=== PATIENT | female | born 1975 | race Two or more races ===

== ENCOUNTER 2024-03-09 13:36 | Inpatient (IN) | payer MEDICAID, OTHER ==
[~2024-03-09] VITALS: Ht 167.6 cm; Wt 70.1 kg
[2024-03-09 15:44] LABS: Urine Blood 1+ /uL (Negative); Urine Clarity Clear (Clear); Urine Color Colorless (Yellow); Urine Protein, UAD TRACE (Negative); Urine Specific Gravity 1.004 (1.001-1.035); Urine Urobilinogen Normal (Negative)
[2024-03-09 15:44] LABS: Basophils # (auto) 0 10 ^3/uL (0-0.2); Basophils % (auto) 0.3 % (0.0-2.0); Eosinophils # (auto) 0 10 ^3/uL (0-0.8); Eosinophils % (auto) 0.4 % (0.0-7.0); Hematocrit 37.3 % (36.0-46.0); Hemoglobin 12.5 g/dL (12.2-16.2); Lymphocytes # (auto) 1.3 10 ^3/uL (0.4-5.4); Lymphocytes % (auto) 11.5 % (10.0-50.0); Mean Corpuscular Hemoglobin 28.5 pg (28.0-32.0); Mean Corpuscular Hgb Conc. 33.5 g/dL (32.0-36.0); Mean Corpuscular Volume 84.8 fL (80.0-100.0); Monocytes # (auto) 1.2 10 ^3/uL (0-1.3); Neutrophils # (auto) 8.5 10 ^3/uL (1.6-8.6); Neutrophils % (auto) 76.8 % (37.0-80.0); Nucleated Red Blood Cells % 0.1 %; Platelet Count (auto) 325 10^3/uL (140-450); Red Cell Distribution Width 13.3 % (11.8-14.3); White Blood Cell 11.1 10^3/uL (4.4-10.8)
[2024-03-09 16:02] LABS: Alanine Aminotransferase 29 U/L (7-40); Albumin 4.6 g/dL (3.2-4.8); Alkaline Phosphatase 86 U/L (46-116); Anion Gap 8 (5-15); Aspartate Aminotransferase 19 U/L (13-40); BUN/Creatinine Ratio 5.5 (10.0-20.0); Blood Urea Nitrogen 6 mg/dL (9-23); Calcium 10.3 mg/dL (8.7-10.4); Carbon Dioxide 24 mmol/L (20-30); Chloride 105 mmol/L (98-107); Glucose 120 mg/dL (74-106); Potassium 3.7 mmol/L (3.5-5.1); Sodium 137 mmol/L (136-145)
[2024-03-09 16:03] LABS: Bilirubin, Total 0.3 mg/dL (0.2-1.0); Total Protein 7.7 g/dL (5.7-8.2)
[2024-03-09] MEDS ORDERED: CEPH250C PO (16:25)
[2024-03-09 17:43] VITALS: PULSE 103; RESP 18; O2SAT 98
[2024-03-09 22:00] VITALS: PULSE 96; RESP 23; O2SAT 96
[2024-03-10] VITALS (7 sets, daily range): BP systolic 95–129; BP diastolic 62–95; PULSE 91–110; RESP 16–20; TEMP 97.8–98.7; O2SAT 93–98
[2024-03-10] MEDS ORDERED: HYDROmorphone HCL 2 MG/ML VL/or syr IV PRN (00:15)
[2024-03-10] MEDS ORDERED: DOCUSATE SOD 100 MG CAP PO PRN (00:15)
[2024-03-10] MEDS: cefTRIAXone 1GM/50ML D5W 50 ML IV SCH (00:35)
[2024-03-10] MEDS: LACTATED RINGER'S 1,000 ML IV ONE (00:35)
[2024-03-10] MEDS: HYDROcodone-ACET 5/325MG TAB PO PRN (00:36)
[2024-03-10] MEDS: ACETAMINOPHEN 325 MG TAB PO PRN (03:25)
[2024-03-10] MEDS: traZODone HCL 50 MG TAB PO ONE (04:02)
[2024-03-10] MEDS: SODIUM CHLOR 0.9% PF (SALINE LOCK) 10ML VIAL/SYR IV SCH (06:00)
[2024-03-10 06:16] LABS: Basophils # (auto) 0 10 ^3/uL (0-0.2); Basophils % (auto) 0.2 % (0.0-2.0); Eosinophils # (auto) 0.2 10 ^3/uL (0-0.8); Eosinophils % (auto) 1.4 % (0.0-7.0); Hematocrit 32.6 % (36.0-46.0); Hemoglobin 11.3 g/dL (12.2-16.2); Lymphocytes # (auto) 1.4 10 ^3/uL (0.4-5.4); Lymphocytes % (auto) 12.4 % (10.0-50.0); Mean Corpuscular Hemoglobin 29.2 pg (28.0-32.0); Mean Corpuscular Hgb Conc. 34.6 g/dL (32.0-36.0); Mean Corpuscular Volume 84.4 fL (80.0-100.0); Monocytes # (auto) 1.4 10 ^3/uL (0-1.3); Platelet Count (auto) 288 10^3/uL (140-450); Red Blood Cells 3.86 10^6/uL (4.0-5.20); Red Cell Distribution Width 13.1 % (11.8-14.3)
[2024-03-10] MEDS ORDERED: ZIPR80CA43 PO (06:17)
[2024-03-10] MEDS ORDERED: LITH300C3 PO (06:17)
[2024-03-10 06:35] LABS: Alanine Aminotransferase 32 U/L (7-40); Albumin 3.6 g/dL (3.2-4.8); Alkaline Phosphatase 72 U/L (46-116); Anion Gap 3 (5-15); Aspartate Aminotransferase 25 U/L (13-40); BUN/Creatinine Ratio 8.2 (10.0-20.0); Bilirubin, Total 0.3 mg/dL (0.2-1.0); Blood Urea Nitrogen 7 mg/dL (9-23); Calcium 9.5 mg/dL (8.7-10.4); Carbon Dioxide 25 mmol/L (20-30); Chloride 110 mmol/L (98-107); Glucose 104 mg/dL (74-106); Potassium 3.9 mmol/L (3.5-5.1); Sodium 138 mmol/L (136-145); Total Protein 6.2 g/dL (5.7-8.2)
[2024-03-10] MEDS: ENOXAPARIN SOD 40 MG/0.4 ML SYRINGE SC SCH (10:46)
[2024-03-10] MEDS ORDERED: LORA-1121 PO (15:41)
[2024-03-10] MEDS: LORazepam 0.5 MG TAB PO PRN (17:25)
[2024-03-10] MEDS: traZODone HCL 50 MG TAB PO PRN (21:24)
[2024-03-10] MEDS: GEODON 20 MG PO SCH (22:00)
[2024-03-10] MEDS ORDERED: LITHIUM CARBONATE 300 MG TAB PO ONE (22:00)
[2024-03-11 05:00] VITALS: BP 130/74; PULSE 87; RESP 19; TEMP 98.7; O2SAT 96
[2024-03-11 06:11] LABS: Basophils # (auto) 0 10 ^3/uL (0-0.2); Basophils % (auto) 0.3 % (0.0-2.0); Eosinophils # (auto) 0.1 10 ^3/uL (0-0.8); Eosinophils % (auto) 1.1 % (0.0-7.0); Hematocrit 33.6 % (36.0-46.0); Hemoglobin 11.5 g/dL (12.2-16.2); Lymphocytes # (auto) 2.1 10 ^3/uL (0.4-5.4); Lymphocytes % (auto) 16.7 % (10.0-50.0); Mean Corpuscular Hemoglobin 28.9 pg (28.0-32.0); Mean Corpuscular Hgb Conc. 34.1 g/dL (32.0-36.0); Mean Corpuscular Volume 84.8 fL (80.0-100.0); Monocytes # (auto) 1.5 10 ^3/uL (0-1.3); Monocytes % (auto) 11.7 % (0.0-12.0); Neutrophils % (auto) 70.2 % (37.0-80.0); Platelet Count (auto) 360 10^3/uL (140-450); Red Blood Cells 3.96 10^6/uL (4.0-5.20); Red Cell Distribution Width 13.3 % (11.8-14.3); White Blood Cell 12.8 10^3/uL (4.4-10.8)
[2024-03-11 06:26] LABS: Alanine Aminotransferase 39 U/L (7-40); Albumin 4.1 g/dL (3.2-4.8); Alkaline Phosphatase 83 U/L (46-116); Anion Gap 6 (5-15); Aspartate Aminotransferase 28 U/L (13-40); BUN/Creatinine Ratio 9.2 (10.0-20.0); Blood Urea Nitrogen 8 mg/dL (9-23); Calcium 9.8 mg/dL (8.7-10.4); Carbon Dioxide 23 mmol/L (20-30); Chloride 109 mmol/L (98-107); Glucose 103 mg/dL (74-106); Potassium 4.4 mmol/L (3.5-5.1); Sodium 138 mmol/L (136-145)
[2024-03-11 06:27] LABS: Bilirubin, Total 0.3 mg/dL (0.2-1.0); Total Protein 6.9 g/dL (5.7-8.2)
[2024-03-11 08:00] VITALS: PULSE 98; RESP 17; O2SAT 97
[2024-03-11 12:30] VITALS: BP 136/94; PULSE 99; RESP 18; TEMP 99; O2SAT 95
[2024-03-11 17:30] VITALS: BP 127/86; PULSE 89; RESP 19; TEMP 98.2; O2SAT 99
[2024-03-11] MEDS ORDERED: TEMA15CA PO (17:59)
[2024-03-11 21:00] VITALS: BP 121/77; PULSE 104; RESP 17; TEMP 98.1; O2SAT 97
[2024-03-11] MEDS: LITHIUM CARBONATE 300 MG PO SCH (22:00)
[2024-03-11] MEDS: GEODON 20 MG PO SCH (22:00)
[2024-03-11] MEDS: HYDROcodone-ACET 5/325MG TAB PO PRN (22:51)
[2024-03-12 01:00] VITALS: BP 120/70; PULSE 93; RESP 18; TEMP 97.8; O2SAT 98
[2024-03-12 05:14] VITALS: BP 115/77; PULSE 80; RESP 16; TEMP 97.6; O2SAT 98
[2024-03-12 08:09] LABS: Basophils # (auto) 0.1 10 ^3/uL (0-0.2); Basophils % (auto) 0.6 % (0.0-2.0); Eosinophils # (auto) 0.2 10 ^3/uL (0-0.8); Eosinophils % (auto) 2.4 % (0.0-7.0); Hematocrit 33.2 % (36.0-46.0); Hemoglobin 11.4 g/dL (12.2-16.2); Lymphocytes # (auto) 1.8 10 ^3/uL (0.4-5.4); Lymphocytes % (auto) 17.7 % (10.0-50.0); Mean Corpuscular Hgb Conc. 34.5 g/dL (32.0-36.0); Monocytes # (auto) 0.9 10 ^3/uL (0-1.3); Monocytes % (auto) 9.2 % (0.0-12.0); Neutrophils # (auto) 7.1 10 ^3/uL (1.6-8.6); Neutrophils % (auto) 70.1 % (37.0-80.0); Platelet Count (auto) 417 10^3/uL (140-450); Red Blood Cells 3.95 10^6/uL (4.0-5.20); Red Cell Distribution Width 13.1 % (11.8-14.3); White Blood Cell 10.2 10^3/uL (4.4-10.8)
[2024-03-12 08:30] VITALS: BP 127/89; PULSE 74; RESP 19; TEMP 98.3; O2SAT 96
[2024-03-12] MEDS: ONDANSETRON HCL 4 MG/2 ML VIAL IV PRN (08:39)
[2024-03-12 08:44] LABS: Alanine Aminotransferase 75 U/L (7-40); Alkaline Phosphatase 81 U/L (46-116); Anion Gap 6 (5-15); BUN/Creatinine Ratio 17.5 (10.0-20.0); Blood Urea Nitrogen 14 mg/dL (9-23); Calcium 10.1 mg/dL (8.7-10.4); Carbon Dioxide 24 mmol/L (20-30); Chloride 109 mmol/L (98-107); Glucose 119 mg/dL (74-106); Potassium 4.2 mmol/L (3.5-5.1); Sodium 139 mmol/L (136-145)
[2024-03-12] MEDS: IBUPROFEN 600 MG TAB PO PRN (08:44)
[2024-03-12 08:45] LABS: Albumin 3.8 g/dL (3.2-4.8); Aspartate Aminotransferase 52 U/L (13-40); Bilirubin, Total 0.2 mg/dL (0.2-1.0)
[2024-03-12 08:46] LABS: Total Protein 6.7 g/dL (5.7-8.2)
[2024-03-12 13:30] VITALS: BP 120/80; PULSE 73; RESP 18; TEMP 98.2; O2SAT 96
[2024-03-12] MEDS ORDERED: CEFD300C2 PO (15:40)
[2024-03-12 16:30] VITALS: BP 142/90; PULSE 50; RESP 20; TEMP 98.2; O2SAT 100
[2024-03-12 16:54] VITALS: TEMP 36.8
== END 2024-03-12 18:00 | disposition home or self-care (01) | DRG 720 ==
LOC: ER 13:36 → OVERFLOW 03-10 00:11 → WEST WING 03-10 02:29
PROVIDERS: ADMIT Internal Medicine; ATTEND Internal Medicine
DX: A41.9 Sepsis, unspecified organism (principal); F31.9 Bipolar disorder, unspecified; N30.00 Acute cystitis without hematuria; B96.89 Other specified bacterial agents as the cause of diseases classified elsewhere
CPT/HCPCS: 36415; 80053; 80178; 81003; 85025; 87086; 87088; 87186; G0378; J2405

== ENCOUNTER 2024-05-25 17:24 | Inpatient (IN) | payer MEDICAID, OTHER ==
[~2024-05-25] VITALS: Ht 167.6 cm; Wt 63.4 kg
[~2024-05-25 17:24] MED LIST: CEFD300C2 PO; LITH300C3 PO; LORA-1121 PO; TEMA15CA PO; ZIPR80CA43 PO
--- NOTE | 2024-05-25 17:53 | ECG ---
[facility] Test Date: 2024-05-25 Test Time: 17:37:34 Pat Name: LEIDY CROCKER Department: er Room: Gender: F Auditing Specialist: gp : [id number] Requested By: KENNETH GUERRERO Order Number: [id number] Reading MD: Measurements Intervals [place] Rate: 46 P: 52 SD: 123 QRS: 72 QRSD: 101 T: 63 QT: 507 QTc: 444 Interpretive Statements Sinus bradycardia Baseline wander in lead(s) II Please click the below link to view image of tracing.
[2024-05-25 18:06] LABS: Urine Bacteria None Seen /hpf (None Seen)
--- NOTE | 2024-05-25 18:10 | ED.PDOC ---
GI ASSESSMENT HPI Comments 48 y.o female with PMH of anxiety, possible IBS and bipolar disorder, presents to the ED for a chief complaint of left sided abdominal pain associated with nausea, vomiting, and yellow loose stool that started at 4am today. Patient reports intermittent similar symptoms in the past and states she was told she may have IBS, however has never been evaluated by a web services professional. Patient states abdominal pain is burning, radiates to her mid back and is constant. Patient tried taking Ativan today because she states her symptoms were causing her to become anxious, however was unable to keep it down. Patient denies any fever, chills, or urinary symptoms. No other symptoms or pain reported at this time. Chief Complaint: Abdominal Pain Time Seen by MD: 17:30 Primary Care Provider: Reviewed Notes: Nurses Notes, Medications, Allergies Allergies: Coded Allergies: Sulfa Antibiotics (Verified Allergy, Unknown, 03/09/24) Home Meds Active Scripts Cefdinir (Cefdinir) 300 Mg Cap, 1 CAP PO BID for 5 Days, #10 CAP Prov:MARKELL SHAH MD 03/12/24 Reported Medications Temazepam (Temazepam) 15 Mg Cap, 15 MG PO HS, CAP 03/11/24 Lorazepam (ATIVAN TABLET) 0.5 Mg Tb, 1 TAB PO PRN, #90 TAB 03/10/24 Ziprasidone Hydrochloride (Geodon) 80 Mg Cap, 20 MG PO HS, CAP 03/10/24 [place] Carbonate ([place] Carbonate) 300 Mg Cap, 600 MG PO HS for 30 Days, MG 03/10/24 Information Source: Patient Mode of Arrival: Ambulatory Timing: Hours Duration: Since onset Quality: Other (discomfort ) Vomitus: Hard Stool: Yellow Severity: Moderate Recent: None Recent Hx of: None Pain Location: Diffuse Modifying Factors: Nothing Associated sign and symptoms: Nausea, Vomiting, Abdominal Pain Past Medical History PAST MEDICAL HISTORY: Anxiety Past Medical History (Other): Bipolar avery and possible IBS Surgical History: [employer] History: Denies all [employer] Hx Family History Family History: Unknown Social History Smoker: Non-Smoker Alcohol: Denies ETOH Use Drugs: Marijuana Lives In: Home Constitutional: denies: chills, diaphoresis, fatigue, fever, malaise, sweats, weakness, others EENTM: denies: blurred vision, double vision, ear bleeding, ear discharge, ear drainage, ear pain, ear ringing, eye pain, eye redness, hearing loss, mouth pain, mouth swelling, nasal discharge, nose bleeding, nose congestion, nose pain, photophobia, tearing, throat pain, throat swelling, voice changes, others Respiratory: denies: cough, hemoptysis, orthopnea, SOB at rest, shortness of breath, SOB with excertion, stridor, wheezing, others Cardiovascular: denies: chest pain, dizzy spells, diaphoresis, Dyspnea on exertion, edema, irregular heart beat, left arm pain, lightheadedness, palpitations, PND, syncope, others Gastrointestinal: reports: abdominal pain, nausea, vomiting, others; denies: abdomen distended, blood streaked bowels, constipated, diarrhea, dysphagia, difficulty swallowing, hematemesis, melena, poor appetite, poor fluid intake, rectal bleeding, rectal pain Genitourinary: denies: abnormal vagina bleeding, burning, dyspareunia, dysuria, flank pain, frequency, hematuria, incontinence, pain, , vagina discharge, urgency, others Neurological: denies: dizziness, fainting, headache, left sided numbness, left sided weakness, numbness, paresthesia, pre-existing deficit, right sided numbness, right sided weakness, seizure, speech problems, tingling, tremors, weakness, others Musculoskeletal: reports: back pain; denies: gout, joint pain, joint swelling, muscle pain, muscle stiffness, neck pain, others Integumetry: denies: bruises, change in color, change in hair/nails, dryness, laceration, lesions, lumps, rash, wounds, others Allergic/Immunocompromised: denies: Difficulty Healing, Frequent Infections, Hives, Itching, others Hematologic/Lymphatic: denies: anemia, blood clots, easy bleeding, easy bruising, swollen glands, others Endocrine: denies: excessive hunger, excessive sweating, excessive thirst, excessive urination, flushing, intolerance to cold, intolerance to heat, unexplained weight gain, unexplained weight loss, others Psychiatric: denies: anxiety, bipolar disorder, depression, hopeless, panic disorder, schizophrenia, sleepless, suicidal, others All Other Systems: Reviewed and Negative Physical Exam General Appearance: Mild Distress HEENT: Normal ENT Inspection Neck: Full Range of Motion, Normal Inspection Respiratory: Lungs Clear, No Accessory Muscle Use, No Respiratory Distress, Normal Breath Sounds Cardiovascular: No Edema, No JVD, Regular Rate/Rhythm Breast Exam: Deferred Gastrointestinal: LLQ, LUQ, Soft, Tenderness Genitalia: Deferred Pelvic: Deferred Rectal: Deferred Extremities: Normal inspection, Normal range of motion, Non-tender, No pedal edema Neurologic: Alert, No Motor Deficits, Normal Affect, Normal Mood, No Sensory Deficits Cerebellar Function: NOT DONE Reflexes: NOT DONE Skin: Dry, Normal Color, Warm Lymphatic: NOT DONE Was a procedure done? Was a procedure done?: No GI differential Dx Differential Diagnosis: Bowel Obstruction, Diverticular disease, Gastritis/PUD, Gastroenteritis, GI hemorrhage, Inflammatory BD, Ischemic Bowel, Pancreatitis, UTI, Dehydration, Diabetes/ DKA, Electrolyte Imbalance, , Bacterial, Parasitic, Viral, Hypovolemia, Impaction, Renal Failure, Anemia, Stress Ulcer, Kidney Stone X-Ray, Labs, Meds, VS Vital Signs Date Time Temp Pulse Resp B/P (MAP) Pulse Ox O2 Delivery O2 Flow Rate FiO2 05/25/24 19:15 55 17 111/61 (78) 99 05/25/24 19:14 55 17 111/61 05/25/24 18:49 66 18 125/83 05/25/24 18:27 97.7 56 16 125/83 (97) 99 97.7 05/25/24 18:27 66 16 99 Room Air 05/25/24 17:39 98.1 50 18 172/87 (115) 100 05/25/24 17:37 46 Lab Test 05/25/24 20:07 05/25/24 18:11 05/25/24 17:45 Range/Units Lactic Acid Level 1.1 2.2 *H 0.4-2.0 mmol/L White Blood Count 16.3 H 4.4-10.8 10^3/uL Red Blood Count 4.89 4.0-5.20 10^6/uL Hemoglobin 13.8 12.2-16.2 g/dL Hematocrit 41.2 36.0-46.0 % Mean Corpuscular Volume 84.3 80.0-100.0 fL Mean Corpuscular Hemoglobin 28.3 28.0-32.0 pg Mean Corpuscular Hemoglobin Concent 33.5 32.0-36.0 g/dL Red Cell Distribution Width 12.8 11.8-14.3 % Platelet Count 341 140-450 10^3/uL Mean Platelet Volume 7.9 6.9-10.8 fL Neutrophils (%) (Auto) 89.5 H 37.0-80.0 % Lymphocytes (%) (Auto) 7.6 L 10.0-50.0 % Monocytes (%) (Auto) 2.5 0.0-12.0 % Eosinophils (%) (Auto) 0.0 0.0-7.0 % Basophils (%) (Auto) 0.4 0.0-2.0 % Neutrophils # (Auto) 14.6 H 1.6-8.6 10 ^3/uL Lymphocytes # (Auto) 1.2 0.4-5.4 10 ^3/uL Monocytes # (Auto) 0.4 0-1.3 10 ^3/uL Eosinophils # (Auto) 0 0-0.8 10 ^3/uL Basophils # (Auto) 0.1 0-0.2 10 ^3/uL Nucleated Red Blood Cells 0.0 % Sodium Level 140 136-145 mmol/L Potassium Level 4.5 3.5-5.1 mmol/L Chloride Level 106 98-107 mmol/L Carbon Dioxide Level 22 20-31 mmol/L Anion Gap 12 5-15 Blood Urea Nitrogen 14 9-23 mg/dL Creatinine 1.15 H 0.550-1.02 mg/dL Glomerular Filtration Rate Calc 59 >90 mL/min BUN/Creatinine Ratio 12.2 10.0-20.0 Serum Glucose 150 H 74-106 mg/dL Calcium Level 11.9 H 8.7-10.4 mg/dL Total Bilirubin 0.8 0.2-1.0 mg/dL Aspartate Amino Transferase (AST) 19 13-40 U/L Alanine Aminotransferase (ALT) 27 7-40 U/L Alkaline Phosphatase 87 46-116 U/L Total Protein 8.2 5.7-8.2 g/dL Albumin 5.0 H 3.2-4.8 g/dL Lipase 28 12-53 U/L Beta HCG, Quantitative 3.0 1.5-4.2 mIU/mL Urine Color Yellow Yellow Urine Clarity Clear Clear Urine pH 7.0 5.0-9.0 Urine Specific [place] 1.023 1.001-1.035 Urine Protein 1+ H Negative Urine Ketones 2+ H Negative Urine Blood Negative Negative /uL Urine Nitrite Negative Negative Urine Bilirubin Negative Negative Urine Urobilinogen Normal Negative mg/dL Urine Leukocyte Esterase Negative Negative /uL Urine RBC 6 0 - 4 /hpf Urine WBC 6 0 - 5 /hpf Urine Squamous Epithelial Cells Few <5 /hpf Urine Bacteria None seen None Seen /hpf Urine Hyaline Casts Few 0 - 2 /lpf Urine Mucus Few None Seen Urine Glucose Normal Normal mg/dL Current Medications Medications (Trade) Dose Ordered Sig/Pancho Route Start Time Stop Time Status Last Admin Sodium Chloride 1,000 ml @ 1,000 mls/hr Q1H ONCE IV 05/25/24 18:00 05/25/24 18:59 DC 05/25/24 18:42 Ondansetron HCl (Zofran) 4 mg ONCE ONCE IV 05/25/24 18:00 05/25/24 18:01 DC 05/25/24 18:48 Morphine Sulfate 4 mg ONCE ONCE IV 05/25/24 18:00 05/25/24 18:01 DC 05/25/24 18:49 Famotidine (Pepcid Injection) 20 mg ONCE ONCE IV 05/25/24 18:00 05/25/24 18:01 DC 05/25/24 18:48 PROCEDURE(s): ABPL - CT AB PEL WO CON-NO ORAL OR IV REASON: L sided abd pain, n/v ORDER NUMBER(s): [id number], ACCESSION NUMBER(s): [id number] Exam: CT CT AB PEL WO CON-NO ORAL OR IV History: L sided abd pain, n/v Comparison Study: None available at time of dictation. Technique: Multidetector CT of the abdomen and pelvis without contrast. Axial, coronal and sagittal multiplanar reformats were performed by the technologist on a separate workstation. Radiation Dose Information: CT Dose: CTDI volume is 6.69 mGy. Dose-length product is 322.94 mGy*cm Findings: The lung bases are clear. Partially visualized heart is unremarkable. 1.3 cm right hepatic lobe cyst. Otherwise, liver, spleen, gallbladder, pancreas and adrenal glands are unremarkable. Kidneys, ureters and urinary bladder unremarkable. Intrauterine device is noted in place. Otherwise, uterus and adnexa are unremarkable. Mild gastric wall thickening. Otherwise, stomach is unremarkable. Mild wall thickening of proximal small bowel loops. The remainder of the small bowel loops unremarkable. Appendix is unremarkable. Scattered colonic diverticulosis without diverticulitis. No intraperitoneal free air or free fluid. No evidence of aortic aneurysm. No significant lymphadenopathy. Soft tissues are unremarkable. No destructive osseous lesions are noted. IMPRESSION: Wall thickening of the stomach and proximal small bowel loops. Correlate for gastroenteritis. Scattered colonic diverticulosis without diverticulitis. Small right hepatic lobe cyst. X-Ray, Labs, Meds, VS Comment 48-year-old female with a history of anxiety and bipolar disorder complaining of left-sided abdominal pain. Patient reports she has had intermittent ongoing similar symptoms 4 years, however has never been seen by a web services professional Vitals remarkable for heart rate 46, BP 142/87 Exam remarkable for left-sided abdominal tenderness to palpation, nontender to percussion, no rebound or guarding CT abdomen and pelvis IMPRESSION: Wall thickening of the stomach and proximal small bowel loops. Correlate for gastroenteritis. Scattered colonic diverticulosis without diverticulitis. Small right hepatic lobe cyst. CBC remarkable for WBC 16.3, BMP remarkable for creatinine 1.15, no other abnormalities of acute significance HCG negative, lipase normal Lactate 2.2 UA Remarkable for protein and ketones Patient received the following in the ED: 1 L 0.9 normal saline IV bolus, morphine 4 mg IV, Zofran 4 mg IV, Pepcid 20 mg IV On re-evaluation, patient stated pain has somewhat improved, but patient is still having ongoing pain and nausea Plan is to admit the patient for IV hydration, pain and emesis control, and GI evaluation. Time of 1ST Reevaluation: 18:04 Reevaluation 1ST: Unchanged Time of 2ND Reevaluation: 20:14 Reevaluation 2ND: Improved Patient Education/Counseling: Diagnosis, Treatment, Prognosis Family Education/Counseling: No Family Present Departure 1 Departure Time of Disposition: 20:15 Impression: Primary Impression: Abdominal pain, vomiting, and diarrhea Additional Impressions: Elevated lactic acid level Dehydration Disposition: ADMITTED INPATIENT Admit to: Med Surg Condition: Fair Critical Care Note Critical Care Time?: No Stability Stability form required: No I personally scribed for KENNETH PENA MD ([email or web address]) on 05/25/24 at 18:09. Electronically submitted by Isis Meza ([facility]). I personally scribed for KENNETH PENA MD ([email or web address]) on 05/25/24 at 19:01. Electronically submitted by Isis Meza ([facility]). KENNETH PENA MD May 25, 2024 18:09
[2024-05-25 18:16] LABS: Urine Blood Negative /uL (Negative); Urine Clarity Clear (Clear); Urine Color Yellow (Yellow); Urine Hyaline Cast FEW /lpf (0 - 2); Urine Mucus FEW (None Seen); Urine Protein, UAD 1+ (Negative); Urine Specific Gravity 1.023 (1.001-1.035); Urine Urobilinogen Normal (Negative); Urine WBC 6 /hpf (0 - 5)
[2024-05-25 18:22] LABS: Basophils # (auto) 0.1 10 ^3/uL (0-0.2); Basophils % (auto) 0.4 % (0.0-2.0); Eosinophils # (auto) 0 10 ^3/uL (0-0.8); Hematocrit 41.2 % (36.0-46.0); Hemoglobin 13.8 g/dL (12.2-16.2); Lymphocytes # (auto) 1.2 10 ^3/uL (0.4-5.4); Lymphocytes % (auto) 7.6 % (10.0-50.0); Mean Corpuscular Hemoglobin 28.3 pg (28.0-32.0); Mean Corpuscular Hgb Conc. 33.5 g/dL (32.0-36.0); Mean Corpuscular Volume 84.3 fL (80.0-100.0); Monocytes # (auto) 0.4 10 ^3/uL (0-1.3); Monocytes % (auto) 2.5 % (0.0-12.0); Neutrophils # (auto) 14.6 10 ^3/uL (1.6-8.6); Neutrophils % (auto) 89.5 % (37.0-80.0); Platelet Count (auto) 341 10^3/uL (140-450); Red Blood Cells 4.89 10^6/uL (4.0-5.20); Red Cell Distribution Width 12.8 % (11.8-14.3); White Blood Cell 16.3 10^3/uL (4.4-10.8)
[2024-05-25 18:35] LABS: Anion Gap 12 (5-15); Calcium 11.9 mg/dL (8.7-10.4); Carbon Dioxide 22 mmol/L (20-31); Chloride 106 mmol/L (98-107); Potassium 4.5 mmol/L (3.5-5.1); Sodium 140 mmol/L (136-145)
[2024-05-25 18:42] LABS: Alanine Aminotransferase 27 U/L (7-40); Alkaline Phosphatase 87 U/L (46-116); Aspartate Aminotransferase 19 U/L (13-40); BUN/Creatinine Ratio 12.2 (10.0-20.0); Bilirubin, Total 0.8 mg/dL (0.2-1.0); Blood Urea Nitrogen 14 mg/dL (9-23); Glucose 150 mg/dL (74-106); Total Protein 8.2 g/dL (5.7-8.2)
[2024-05-25] MEDS: SODIUM CHLORIDE 0.9% 1,000 ML IV ONE (18:42)
[2024-05-25] MEDS: FAMOTIDINE (10MG/ML) 2ML VL IV ONE (18:48)
[2024-05-25] MEDS: ONDANSETRON HCL 4 MG/2 ML VIAL IV ONE (18:48)
[2024-05-25] MEDS: MORPHINE SULFATE 4 MG/ML SYR/VIAL IV ONE (18:49)
[2024-05-25 18:53] LABS: Lipase 28 U/L (12-53)
[2024-05-25 19:35] LABS: Lactic Acid w/Reflex 2.2 mmol/L (0.4-2.0)
--- NOTE | 2024-05-25 19:40 | DVH ---
Exam: CT CT AB PEL WO CON-NO ORAL OR IV History: L sided abd pain, n/v Comparison Study: None available at time of dictation. Technique: Multidetector CT of the abdomen and pelvis without contrast. Axial, coronal and sagittal m ultiplanar reformats were performed by the technologist on a separate workstation. Radiation Dose Information: CT Dose: CTDI volume is 6.69 mGy. Dose-length product is 322.94 mGy*cm Findings: The lung bases are clear. Partially visualized heart is unremarkable. 1.3 cm right hepatic lobe cyst. Otherwise, liver, spleen, gallbladder, pancreas and adrenal glands ar e unremarkable. Kidneys, ureters and urinary bladder unremarkable. Intrauterine device is noted in place. Otherwise, uterus and adnexa are unremarkable. Mild gastric wall thickening. Otherwise, stomach is unremarkable. Mild wall thickening of proximal s mall bowel loops. The remainder of the small bowel loops unremarkable. Appendix is unremarkable. Scat tered colonic diverticulosis without diverticulitis. No intraperitoneal free air or free fluid. No evidence of aortic aneurysm. No significant lymphadenopathy. Soft tissues are unremarkable. No destructive osseous lesions are noted. IMPRESSION: Wall thickening of the stomach and proximal small bowel loops. Correlate for gastroenteritis. Scattered colonic diverticulosis without diverticulitis. Small right hepatic lobe cyst.
[2024-05-25 21:50] VITALS: BP 138/63; PULSE 66; RESP 18; TEMP 97.9; O2SAT 99
[2024-05-25 22:04] VITALS: PULSE 66; RESP 18; O2SAT 99
[2024-05-25] MEDS: LORazepam 2MG/ML-1ML VIAL IV ONE (22:53)
[2024-05-25] MEDS ORDERED: DEXTROSE (50%) 50ML SYRG IV PRN (23:30)
[2024-05-25] MEDS ORDERED: TEMAZEPAM 15 MG CAP PO PRN (23:30)
[2024-05-25] MEDS ORDERED: MAALOX PLUS or MAALOX 30 ML PO PRN (23:30)
--- NOTE | 2024-05-25 23:43 | DVHHP2 ---
History of Present Illness Reason for Visit: abdominal pain History of Present Illness 48 yo patient with IBS with complaints of pain and diarrhea for the last few days having continued pain patient was recommended for admission by the ed to manage sever pain and suspected infection GI: Gastritis Review of Systems Constitutional: No: Fever, Chills, Sweats, Weakness, Malaise, Other Eyes: No: Pain, Vision change, Conjunctivae inflammation, Eyelid inflammation, Other, Redness ENT: No: Ear pain, Ear discharge, Nose pain, Nose discharge, Nose congestion, Mouth pain, Mouth swelling, Throat pain, Throat swelling, Other Respiratory: No: Cough, Dry, Shortness of breath, SOB with excertion, Wheezing, Hemoptysis, Pleuritic Pain, Sputum, Wheezing, Other Cardiovascular: No: Chest Pain, Palpitations, Orthopnea, Paroxysmal Noc. Dyspnea, Edema, Lt Headedness, Other Gastrointestinal: Abdominal Pain, Diarrhea; No: Nausea, Vomiting, Constipation, Melena, Hematochezia, Other Genitourinary: No Dysuria, No Frequency, No Incontinence, No Hematuria, No Retention, No Other Musculoskeletal: No: other, neck pain, shoulder pain, arm pain, back pain, hand pain, leg pain, foot pain Skin: No: Rash, Lesions, Jaundice, Bruising, Other Neurological: No: Weakness, Numbness, Incoordination, Change in speech, Confusion, Seizures, Other Allergies: Coded Allergies: Sulfa Antibiotics (Verified Allergy, Unknown, 03/09/24) Exam Vital Signs Vital Signs Date Time Temp Pulse Resp B/P (MAP) Pulse Ox O2 Delivery O2 Flow Rate FiO2 05/25/24 22:04 66 18 99 Room Air* 0 21 05/25/24 21:50 97.9 138/63 (88) 97.9 General Appearance: Alert, Oriented X3 HEENT: Atraumatic, PERRLA Respiratory: Clear to auscultation, Normal air movement Cardiovascular: Regular rate, Normal S1, Normal S2 Abdominal: Normal bowel sounds, Soft, No tenderness Extremities: No clubbing, No cyanosis Skin: No rashes, No breakdown Neuro: Normal gait, Normal speech, Strength at 5/5 X4 ext Psych/Mental Status: Mood NL Labs/Xrays Labs Test 05/25/24 20:07 05/25/24 18:11 05/25/24 17:45 Range/Units Lactic Acid Level 1.1 0.4-2.0 mmol/L White Blood Count 16.3 H 4.4-10.8 10^3/uL Red Blood Count 4.89 4.0-5.20 10^6/uL Hemoglobin 13.8 12.2-16.2 g/dL Hematocrit 41.2 36.0-46.0 % Mean Corpuscular Volume 84.3 80.0-100.0 fL Mean Corpuscular Hemoglobin 28.3 28.0-32.0 pg Mean Corpuscular Hemoglobin Concent 33.5 32.0-36.0 g/dL Red Cell Distribution Width 12.8 11.8-14.3 % Platelet Count 341 140-450 10^3/uL Mean Platelet Volume 7.9 6.9-10.8 fL Neutrophils (%) (Auto) 89.5 H 37.0-80.0 % Lymphocytes (%) (Auto) 7.6 L 10.0-50.0 % Monocytes (%) (Auto) 2.5 0.0-12.0 % Eosinophils (%) (Auto) 0.0 0.0-7.0 % Basophils (%) (Auto) 0.4 0.0-2.0 % Neutrophils # (Auto) 14.6 H 1.6-8.6 10 ^3/uL Lymphocytes # (Auto) 1.2 0.4-5.4 10 ^3/uL Monocytes # (Auto) 0.4 0-1.3 10 ^3/uL Eosinophils # (Auto) 0 0-0.8 10 ^3/uL Basophils # (Auto) 0.1 0-0.2 10 ^3/uL Nucleated Red Blood Cells 0.0 % Sodium Level 140 136-145 mmol/L Potassium Level 4.5 3.5-5.1 mmol/L Chloride Level 106 98-107 mmol/L Carbon Dioxide Level 22 20-31 mmol/L Anion Gap 12 5-15 Blood Urea Nitrogen 14 9-23 mg/dL Creatinine 1.15 H 0.550-1.02 mg/dL Glomerular Filtration Rate Calc 59 >90 mL/min BUN/Creatinine Ratio 12.2 10.0-20.0 Serum Glucose 150 H 74-106 mg/dL Calcium Level 11.9 H 8.7-10.4 mg/dL Total Bilirubin 0.8 0.2-1.0 mg/dL Aspartate Amino Transferase (AST) 19 13-40 U/L Alanine Aminotransferase (ALT) 27 7-40 U/L Alkaline Phosphatase 87 46-116 U/L Total Protein 8.2 5.7-8.2 g/dL Albumin 5.0 H 3.2-4.8 g/dL Lipase 28 12-53 U/L Beta HCG, Quantitative 3.0 1.5-4.2 mIU/mL Urine Color Yellow Yellow Urine Clarity Clear Clear Urine pH 7.0 5.0-9.0 Urine Specific [place] 1.023 1.001-1.035 Urine Protein 1+ H Negative Urine Ketones 2+ H Negative Urine Blood Negative Negative /uL Urine Nitrite Negative Negative Urine Bilirubin Negative Negative Urine Urobilinogen Normal Negative mg/dL Urine Leukocyte Esterase Negative Negative /uL Urine RBC 6 0 - 4 /hpf Urine WBC 6 0 - 5 /hpf Urine Squamous Epithelial Cells Few <5 /hpf Urine Bacteria None seen None Seen /hpf Urine Hyaline Casts Few 0 - 2 /lpf Urine Mucus Few None Seen Urine Glucose Normal Normal mg/dL Assessment/Plan Assessment/Plan Admit to Med/Surg Suspected Colitis IN hydration IV Pain PRN IV abx elevated WBC BLAISE IV hydration recheck morning labs Plan discussed with: Patient My Orders Orders - JULIANO VELEZ MD Procedure Category Date Status Time Metronidazole [facility] 05/26/24 Logged 500mg/100ml (Flagyl 00:00 Glucose Blood [facility] 05/26/24 Logged (Accu-Chek Comfort 00:00 Insulin R (Human) [facility] 05/26/24 Logged (Insulin R) 00:00 Dextrose 50% Syringe [facility] 05/25/24 Logged 23:30 Admit ADMIT 05/25/24 Transmitted 23:24 Code Status CODE 05/25/24 Transmitted 23:24 Vital Signs [facility] 05/25/24 In Process 23:24 Review Orders With KARTIK 05/25/24 In Process Adm. 23:24 Consistent DIET 05/26/24 Transmitted Carb(Ccho)Diabetes Breakfast Sodium Chloride 0.9% [facility] 05/25/24 Logged 23:30 Lorazepam Tablet [facility] 05/25/24 Logged (Ativan Tablet) 23:30 Alum & Mag [facility] 05/25/24 Logged Hydrox-Simethicone 23:30 Docusate Sodium [facility] 05/25/24 Logged Capsule (Colace 23:30 Acetaminophen Tablet [facility] 05/25/24 Logged (Tylenol Tablet) 23:30 Temazepam (Restoril) [facility] 05/25/24 Logged 23:30 Notify Md Of Changes [facility] 05/25/24 In Process From Base 23:24 Advance Directive KARTIK 05/25/24 In Process 23:24 Basic Metabolic Panel LAB 05/26/24 Verified 04:00 Complete Blood Count LAB 05/26/24 Verified 04:00 Patient Condition ORDERS 05/25/24 Transmitted 23:24 Allergies [facility]IK 05/25/24 In Process 23:24 Hydrocodone-Acet [facility] 05/25/24 Logged 5/325mg Tab ([place] 23:30 Ondansetron Hcl [facility] 05/25/24 Logged (Zofran) 23:30 Morphine Sulfate [facility] 05/25/24 Logged Injection 23:30 Notify Md Of Changes [facility] 05/25/24 In Process From Base 23:24 Oxygen By Nasal RT 05/25/24 Transmitted Cannula 23:24 (Nf) [place] Carbonate [facility] 05/26/24 Logged 22:00 (Nf) Ziprasidone [facility] 05/26/24 Logged Hydrochloride (Geodon) 22:00 Famotidine Injection [facility] 05/26/24 Logged (Pepcid Injection) 10:00 Problem List: (1) Abdominal pain, vomiting, and diarrhea (2) Dehydration Date of Service: May 25, 2024 Billing Provider: JULIANO VELEZ MD Common Visit Codes: [id number] INP/OBS CARE (HIGH) JULIANO VELEZ MD May 25, 2024 23:43
[2024-05-26] VITALS (9 sets, daily range): BP systolic 104–138; BP diastolic 53–86; PULSE 60–93; RESP 13–20; TEMP 97.6–98.4; O2SAT 92–100
[2024-05-26] MEDS: InsuLIN REG 1unit/0.01ml Soln (100units/ml) SC SCH
[2024-05-26] MEDS: ONDANSETRON HCL 4 MG/2 ML VIAL IV PRN (00:13)
[2024-05-26] MEDS: MORPHINE SULFATE INJ 2 MG/ml SYRG IV PRN (00:14)
[2024-05-26] MEDS: ACCU-CHEK COMFORT CURVE STRIP VI SCH (00:18)
[2024-05-26] MEDS: SODIUM CHLORIDE 0.9% 1,000 ML IV SCH (01:17)
[2024-05-26] MEDS: metroNIDAZOLE 500MG/100ML 100 ML IV SCH ×2 (01:17→20:58)
[2024-05-26 07:02] LABS: Basophils # (auto) 0 10 ^3/uL (0-0.2); Basophils % (auto) 0.2 % (0.0-2.0); Eosinophils # (auto) 0.1 10 ^3/uL (0-0.8); Eosinophils % (auto) 0.5 % (0.0-7.0); Hematocrit 35.6 % (36.0-46.0); Hemoglobin 12.1 g/dL (12.2-16.2); Lymphocytes # (auto) 2.4 10 ^3/uL (0.4-5.4); Mean Corpuscular Hemoglobin 28.7 pg (28.0-32.0); Mean Corpuscular Hgb Conc. 33.8 g/dL (32.0-36.0); Mean Corpuscular Volume 84.8 fL (80.0-100.0); Monocytes # (auto) 1.3 10 ^3/uL (0-1.3); Monocytes % (auto) 8.2 % (0.0-12.0); Neutrophils # (auto) 12.3 10 ^3/uL (1.6-8.6); Neutrophils % (auto) 76.1 % (37.0-80.0); Platelet Count (auto) 279 10^3/uL (140-450); Red Cell Distribution Width 12.7 % (11.8-14.3); White Blood Cell 16.2 10^3/uL (4.4-10.8)
[2024-05-26 07:16] LABS: Anion Gap 9 (5-15); Carbon Dioxide 21 mmol/L (20-31); Chloride 112 mmol/L (98-107); Potassium 3.4 mmol/L (3.5-5.1); Sodium 142 mmol/L (136-145)
[2024-05-26 07:23] LABS: BUN/Creatinine Ratio 7.7 (10.0-20.0); Blood Urea Nitrogen 7 mg/dL (9-23); Glucose 102 mg/dL (74-106)
[2024-05-26] MEDS: ACETAMINOPHEN 325 MG TAB PO PRN (08:56)
[2024-05-26] MEDS: LORATADINE 10 MG TAB PO SCH (10:58)
[2024-05-26] MEDS: FAMOTIDINE INJECTION 40 MG in SODIUM CHL 0.9% 100 ML IV SCH (10:58)
--- NOTE | 2024-05-26 13:01 | DVHPN2 ---
Reviewed: Care Plan, H&P, Labs, Medications, Previous Orders, Radiology Changes from previous H/P or p: No Changes Eyes: No Pain, No Vision change, No Conjunctivae inflammation, No Eyelid inflammation, No Other, No Redness ENT: No Ear pain, No Ear discharge, No Nose pain, No Nose discharge, No Nose congestion, No Mouth pain, No Mouth swelling, No Throat pain, No Throat swelling, No Other Cardiovascular: No Chest Pain, No Palpitations, No Orthopnea, No Paroxysmal Noc. Dyspnea, No Edema, No Lt Headedness, No Other Respiratory: No Cough, No Dry, No Shortness of breath, No SOB with excertion, No Wheezing, No Hemoptysis, No Pleuritic Pain, No Sputum, No Other Gastrointestinal: No Nausea, No Vomiting; Abdominal Pain, Diarrhea; No Constipation, No Melena, No Hematochezia, No Other Genitourinary: No Dysuria, No Frequency, No Incontinence, No Hematuria, No Retention, No Other Musculoskeletal: No other, No neck pain, No shoulder pain, No arm pain, No back pain, No hand pain, No leg pain, No foot pain Skin: No Rash, No Lesions, No Jaundice, No Bruising, No Other Objective Vitals Vital Signs Date Time Temp Pulse Resp B/P (MAP) Pulse Ox O2 Delivery O2 Flow Rate FiO2 05/26/24 09:00 97.6 79 18 114/75 (88) 97 97.6 05/26/24 03:28 Room Air* 0 21 Intake/Output Intake and Output 05/26/24 07:00 Intake Total 1775 ml Output Total 0 ml Balance 1775 ml Intake Oral 175 ml IV Total 1600 ml Output Stool Total 0 ml # Voids 3 Medications Current Medications Medications Dose Ordered Sig/Pancho Route Start Time Stop Time Status Last Admin Dose Admin Metronidazole 100 ml @ 100 mls/hr Q6HR IV 05/26/24 00:00 05/26/24 05:42 100 MLS/HR Diagnostic Test (Pha) 1 strip IQ4HR 05/26/24 00:00 05/26/24 04:04 1 STRIP Insulin Human Regular IQ4HR SC 05/26/24 00:00 Dextrose 50 ml UD PRN IV 05/25/24 23:30 Sodium Chloride 1,000 ml @ 100 mls/hr Q10H IV 05/25/24 23:30 05/26/24 01:17 100 MLS/HR Lorazepam 0.5 mg Q6HP PRN PO 05/25/24 23:30 Al Hydrox/Mg Hydrox/Simethicone 30 ml Q6HP PRN PO 05/25/24 23:30 Docusate Sodium 100 mg BIDPRN PRN PO 05/25/24 23:30 Acetaminophen 650 mg Q6HP PRN PO 05/25/24 23:30 05/26/24 08:56 650 MG Temazepam 15 mg QHSP PRN PO 05/25/24 23:30 Acetaminophen/ Hydrocodone Bitart 1 tab Q4HP PRN PO 05/25/24 23:30 Ondansetron HCl 4 mg Q4HP PRN IV 05/25/24 23:30 05/26/24 00:13 4 MG Morphine Sulfate 2 mg Q4HPRN PRN IV 05/25/24 23:30 05/26/24 00:14 2 MG Patient Own Medication 600 mg HS PO 05/26/24 22:00 UNV Patient Own Medication 20 mg HS PO 05/26/24 22:00 UNV Famotidine 40 mg/ Sodium Chloride 104 ml @ 416 mls/hr DAILY IV 05/26/24 10:00 05/26/24 10:58 416 MLS/HR [place] Carbonate 600 mg HS PO 05/26/24 22:00 Loratadine 10 mg DAILY PO 05/26/24 10:30 05/26/24 10:58 10 MG Ceftriaxone Sodium 50 ml @ 100 mls/hr DAILY@09 IV 05/27/24 09:00 UNV Laboratory Results Laboratory Tests 05/26/24 06:07 Chemistry Test 05/25/24 18:11 05/26/24 06:07 Albumin 5.0 g/dL (3.2-4.8) H Calcium Level 11.9 mg/dL (8.7-10.4) H 10.0 mg/dL (8.7-10.4) Total Protein 8.2 g/dL (5.7-8.2) Lipid panel Test 05/25/24 18:11 Lipase 28 U/L (12-53) LFT Test 05/25/24 18:11 Alanine Aminotransferase (ALT) 27 U/L (7-40) Alkaline Phosphatase 87 U/L (46-116) Aspartate Amino Transferase (AST) 19 U/L (13-40) Total Bilirubin 0.8 mg/dL (0.2-1.0) Urinalysis Test 05/25/24 17:45 Urine Color Yellow (Yellow) Urine Clarity Clear (Clear) Urine pH 7.0 (5.0-9.0) Urine Specific [place] 1.023 (1.001-1.035) Urine Protein 1+ (Negative) H Urine Ketones 2+ (Negative) H Urine Blood Negative /uL (Negative) Urine Nitrite Negative (Negative) Urine Bilirubin Negative (Negative) Urine Urobilinogen Normal mg/dL (Negative) Urine Leukocyte Esterase Negative /uL (Negative) Urine RBC 6 /hpf (0 - 4) Urine WBC 6 /hpf (0 - 5) Urine Squamous Epithelial Cells Few /hpf (<5) Urine Bacteria None seen /hpf (None Seen) Urine Hyaline Casts Few /lpf (0 - 2) Urine Mucus Few (None Seen) Urine Glucose Normal mg/dL (Normal) Labs and/or images reviewed: Labs reviewed by me, Image(s) reviewed by me Assessment/Plan Assessment/Plan [place] [address] secondary to acute colitis Acute gastroenteritis: Rocephin Flagyl Bipolar : Librium Irritable bowel syndrome Acute dehydration: IV fluids Plan discussed with: Patient My Orders Orders - ISIDRO HUTCHISON MD Procedure Category Date Status Time Loratadine Tablet PHA 05/26/24 In Process (Claritin Tablet) 10:30 Ceftriaxone 1gm/50ml PHA 05/27/24 Logged D5w (Rocephin) 09:00 Ceftriaxone 1gm/50ml PHA 05/26/24 Logged D5w (Rocephin) 13:00 Date of Service: May 26, 2024 Billing Provider: ISDIRO HUTCHISON MD Common Visit Codes: [id number] INP/OBS CARE(HIGH) ISIDRO HUTCHISON MD May 26, 2024 13:01
[2024-05-26] MEDS: LORazepam 0.5 MG TAB PO PRN (13:56)
--- NOTE | 2024-05-26 15:27 | MEDREC ---
[facility] Intervention Section I [facility] Intervention: Dose optimization(PK/PD) (PLEASE CONSIDER CHANGING THE FREQUENCY OF FLAGYL FROM Q6H TO Q8H FOR POTENTIAL INTRA-ABDOMINAL INFECTION ) LENORE LOVE PHARMACIST May 26, 2024 15:27
[2024-05-26] MEDS: HYDROcodone-ACET 5/325MG TAB PO PRN (15:38)
[2024-05-26] MEDS: cefTRIAXone 1GM/50ML D5W 50 ML IV ONE (15:39)
[2024-05-26] MEDS: LITHIUM CARBONATE 300 MG TAB PO SCH (20:58)
[2024-05-26] MEDS: ZIPRASIDONE HYDROCHLORIDE PO SCH (20:59)
[2024-05-26] MEDS ORDERED: PATIENTS OWN MEDICATION (Lithium Carbonate 600 MG) PO SCH (22:00)
[2024-05-27] VITALS (7 sets, daily range): BP systolic 103–124; BP diastolic 50–86; PULSE 61–86; RESP 14–19; TEMP 97.8–98.3; O2SAT 95–98
[2024-05-27] MEDS: DOCUSATE SOD 100 MG CAP PO PRN (09:03)
--- NOTE | 2024-05-27 10:40 | DVHPN2 ---
Reviewed: Care Plan, H&P, Labs, Medications, Previous Orders, Radiology Changes from previous H/P or p: No Changes Eyes: No Pain, No Vision change, No Conjunctivae inflammation, No Eyelid inflammation, No Other, No Redness ENT: No Ear pain, No Ear discharge, No Nose pain, No Nose discharge, No Nose congestion, No Mouth pain, No Mouth swelling, No Throat pain, No Throat swelling, No Other Cardiovascular: No Chest Pain, No Palpitations, No Orthopnea, No Paroxysmal Noc. Dyspnea, No Edema, No Lt Headedness, No Other Respiratory: No Cough, No Dry, No Shortness of breath, No SOB with excertion, No Wheezing, No Hemoptysis, No Pleuritic Pain, No Sputum, No Other Gastrointestinal: No Nausea, No Vomiting; Abdominal Pain, Diarrhea; No Constipation, No Melena, No Hematochezia, No Other Genitourinary: No Dysuria, No Frequency, No Incontinence, No Hematuria, No Retention, No Other Musculoskeletal: No other, No neck pain, No shoulder pain, No arm pain, No back pain, No hand pain, No leg pain, No foot pain Skin: No Rash, No Lesions, No Jaundice, No Bruising, No Other Objective Vitals Vital Signs Date Time Temp Pulse Resp B/P (MAP) Pulse Ox O2 Delivery O2 Flow Rate FiO2 05/27/24 08:56 98.0 61 17 109/63 (78) 96 98.0 05/26/24 20:00 Room Air* 0 21 Intake/Output Intake and Output 05/27/24 07:00 Intake Total 4954 ml Output Total 0 ml Balance 4954 ml Intake Oral 2300 ml IV Total 2654 ml Output Stool Total 0 ml # Voids 6 Medications Current Medications Medications Dose Ordered Sig/Pancho Route Start Time Stop Time Status Last Admin Dose Admin Dextrose 50 ml UD PRN IV 05/25/24 23:30 Cancel Sodium Chloride 1,000 ml @ 100 mls/hr Q10H IV 05/25/24 23:30 05/27/24 07:01 100 MLS/HR Lorazepam 0.5 mg Q6HP PRN PO 05/25/24 23:30 05/26/24 20:58 0.5 MG Al Hydrox/Mg Hydrox/Simethicone 30 ml Q6HP PRN PO 05/25/24 23:30 Docusate Sodium 100 mg BIDPRN PRN PO 05/25/24 23:30 05/27/24 09:03 100 MG Acetaminophen 650 mg Q6HP PRN PO 05/25/24 23:30 05/27/24 04:14 650 MG Temazepam 15 mg QHSP PRN PO 05/25/24 23:30 Acetaminophen/ Hydrocodone Bitart 1 tab Q4HP PRN PO 05/25/24 23:30 05/27/24 09:03 1 TAB Ondansetron HCl 4 mg Q4HP PRN IV 05/25/24 23:30 05/26/24 00:13 4 MG Morphine Sulfate 2 mg Q4HPRN PRN IV 05/25/24 23:30 05/26/24 00:14 2 MG Patient Own Medication 600 mg HS PO 05/26/24 22:00 UNV Patient Own Medication 20 mg HS PO 05/26/24 22:00 Famotidine 40 mg/ Sodium Chloride 104 ml @ 416 mls/hr DAILY IV 05/26/24 10:00 05/27/24 09:04 416 MLS/HR [place] Carbonate 600 mg HS PO 05/26/24 22:00 05/26/24 20:58 600 MG Loratadine 10 mg DAILY PO 05/26/24 10:30 05/27/24 09:03 10 MG Ceftriaxone Sodium 50 ml @ 100 mls/hr DAILY@09 IV 05/27/24 09:00 Metronidazole 100 ml @ 100 mls/hr Q8HR IV 05/26/24 22:00 05/27/24 05:37 100 MLS/HR Laboratory Results Laboratory Tests 05/26/24 06:07 Urinalysis Test 05/25/24 17:45 Urine Color Yellow (Yellow) Urine Clarity Clear (Clear) Urine pH 7.0 (5.0-9.0) Urine Specific [place] 1.023 (1.001-1.035) Urine Protein 1+ (Negative) H Urine Ketones 2+ (Negative) H Urine Blood Negative /uL (Negative) Urine Nitrite Negative (Negative) Urine Bilirubin Negative (Negative) Urine Urobilinogen Normal mg/dL (Negative) Urine Leukocyte Esterase Negative /uL (Negative) Urine RBC 6 /hpf (0 - 4) Urine WBC 6 /hpf (0 - 5) Urine Squamous Epithelial Cells Few /hpf (<5) Urine Bacteria None seen /hpf (None Seen) Urine Hyaline Casts Few /lpf (0 - 2) Urine Mucus Few (None Seen) Urine Glucose Normal mg/dL (Normal) Labs and/or images reviewed: Labs reviewed by me, Image(s) reviewed by me Assessment/Plan Assessment/Plan [place] [address] secondary to acute colitis Acute gastroenteritis: Rocephin Flagyl Bipolar : Librium Irritable bowel syndrome Acute dehydration: IV fluids Feels better and wants to go home Plan discussed with: Patient My Orders Orders - ISIDRO HUTCHISON MD Procedure Category Date Status Time Ceftriaxone 1gm/50ml PHA 05/27/24 In Process D5w (Rocephin) 09:00 Metronidazole PHA 05/26/24 In Process 500mg/100ml (Flagyl 22:00 Date of Service: May 27, 2024 Billing Provider: ISIDRO HUTCHISON MD Common Visit Codes: [id number] INP/OBS CARE(HIGH) ISIDRO HUTCHISON MD May 27, 2024 10:40
[2024-05-27] MEDS ORDERED: LEVO500T91 PO (10:41)
[2024-05-27] MEDS ORDERED: METR-344 PO (10:41)
--- NOTE | 2024-05-27 10:45 | DVHDS2 ---
Discharge Summary Date of Admission May 25, 2024 at 23:24 Date of Discharge: May 27, 2024 Labs/Diagnostic Data: Laboratory Results Test 05/26/24 06:07 05/26/24 03:59 05/25/24 20:07 05/25/24 18:11 White Blood Count 16.2 10^3/uL (4.4-10.8) Red Blood Count 4.20 10^6/uL (4.0-5.20) Hemoglobin 12.1 g/dL (12.2-16.2) Hematocrit 35.6 % (36.0-46.0) Mean Corpuscular Volume 84.8 fL (80.0-100.0) Mean Corpuscular Hemoglobin 28.7 pg (28.0-32.0) Mean Corpuscular Hemoglobin Concent 33.8 g/dL (32.0-36.0) Red Cell Distribution Width 12.7 % (11.8-14.3) Platelet Count 279 10^3/uL (140-450) Mean Platelet Volume 8.3 fL (6.9-10.8) Neutrophils (%) (Auto) 76.1 % (37.0-80.0) Lymphocytes (%) (Auto) 15.0 % (10.0-50.0) Monocytes (%) (Auto) 8.2 % (0.0-12.0) Eosinophils (%) (Auto) 0.5 % (0.0-7.0) Basophils (%) (Auto) 0.2 % (0.0-2.0) Neutrophils # (Auto) 12.3 10 ^3/uL (1.6-8.6) Lymphocytes # (Auto) 2.4 10 ^3/uL (0.4-5.4) Monocytes # (Auto) 1.3 10 ^3/uL (0-1.3) Eosinophils # (Auto) 0.1 10 ^3/uL (0-0.8) Basophils # (Auto) 0 10 ^3/uL (0-0.2) Nucleated Red Blood Cells 0.0 % Sodium Level 142 mmol/L (136-145) Potassium Level 3.4 mmol/L (3.5-5.1) Chloride Level 112 mmol/L (98-107) Carbon Dioxide Level 21 mmol/L (20-31) Anion Gap 9 (5-15) Blood Urea Nitrogen 7 mg/dL (9-23) Creatinine 0.91 mg/dL (0.550-1.02) Glomerular Filtration Rate Calc 78 mL/min (>90) BUN/Creatinine Ratio 7.7 (10.0-20.0) Serum Glucose 102 mg/dL (74-106) Calcium Level 10.0 mg/dL (8.7-10.4) POC Glucose 111 mg/dl (70-106) Lactic Acid Level 1.1 mmol/L (0.4-2.0) Total Bilirubin 0.8 mg/dL (0.2-1.0) Aspartate Amino Transferase (AST) 19 U/L (13-40) Alanine Aminotransferase (ALT) 27 U/L (7-40) Alkaline Phosphatase 87 U/L (46-116) Total Protein 8.2 g/dL (5.7-8.2) Albumin 5.0 g/dL (3.2-4.8) Lipase 28 U/L (12-53) Beta HCG, Quantitative 3.0 mIU/mL (1.5-4.2) Test 05/25/24 17:45 Urine Color Yellow (Yellow) Urine Clarity Clear (Clear) Urine pH 7.0 (5.0-9.0) Urine Specific [place] 1.023 (1.001-1.035) Urine Protein 1+ (Negative) Urine Ketones 2+ (Negative) Urine Blood Negative /uL (Negative) Urine Nitrite Negative (Negative) Urine Bilirubin Negative (Negative) Urine Urobilinogen Normal mg/dL (Negative) Urine Leukocyte Esterase Negative /uL (Negative) Urine RBC 6 /hpf (0 - 4) Urine WBC 6 /hpf (0 - 5) Urine Squamous Epithelial Cells Few /hpf (<5) Urine Bacteria None seen /hpf (None Seen) Urine Hyaline Casts Few /lpf (0 - 2) Urine Mucus Few (None Seen) Urine Glucose Normal mg/dL (Normal) Other Laboratory Tests 05/26/24 06:07 Brief Hx & Hospital Course: 80-year-old female with a history of irritable bowel syndrome bipolar came in complaining for abdominal pain and nausea found to [place] [address] abdomen pelvis showed acute colitis. Treated with Rocephin Flagyl IV. At the time of discharge patient is afebrile and asymptomatic and wants to go home. Prescription for Levaquin and Flagyl sent to the pharmacy Consults/Reason for consult None Operations or Procedures CT abdomen pelvis without contrast Condition at Discharge: Fair Final Diagnosis/Problems List [place] [address] secondary to acute colitis Acute gastroenteritis: Rocephin Flagyl Bipolar : Librium Irritable bowel syndrome Acute dehydration: IV fluids Discharge Disposition: Home Discharge Instruct/Medications Diet: Regular Activity: Light activity Follow Up/Referral: Follow up with your primary doctor Medications: Levaquin Flagyl Transmitted to pharmacy 35 (Time Taken for discharge summary 35 minutes) Discharge Statement: "Patient was advised to return to the ER or call 911 if any headaches, dizziness, shortness of breath, chest pain, abdominal pain, bleeding, fevers, or worsening of medical condition. Patient was counseled about treatment plan, medications, possible side effects, patientverbalized understanding. All questions were answered to the best of my ability. This discharge took greater then 30 minutes in planning, reviewing documentation, counseling the patient, and discussing with other team members." ASSESSMENT ASSESSMENT Hospital Course Improved Assessment [place] [address] secondary to acute colitis Acute gastroenteritis: Rocephin Flagyl Bipolar : Librium Irritable bowel syndrome Acute dehydration: IV fluids Date of Service: May 27, 2024 Billing Provider: ISIDRO HUTCHISON MD Common Visit Codes: [id number] DISCH DAY >30min ISIDRO HUTCHISON MD May 27, 2024 10:45
[2024-05-27] MEDS: cefTRIAXone 1GM/50ML D5W 50 ML IV SCH (10:48)
[2024-05-27] MEDS: CYCLOBENZAPRINE HCL 10 MG TAB PO ONE (17:44)
[2024-05-27] MEDS: SIMETHICONE 80 MG CHEWABLE TABLET PO PRN (17:45)
[2024-05-28 00:54] VITALS: BP 100/56; PULSE 63; RESP 20; TEMP 98.8; O2SAT 98
[2024-05-28 05:00] VITALS: BP 102/53; PULSE 58; RESP 20; TEMP 98.5; O2SAT 97
[2024-05-28 09:00] VITALS: BP 106/65; PULSE 82; RESP 17; TEMP 97.9; O2SAT 95
--- NOTE | 2024-05-28 09:30 | DVHPN2 ---
Reviewed: Care Plan, H&P, Labs, Medications, Previous Orders, Radiology Changes from previous H/P or p: No Changes Eyes: No Pain, No Vision change, No Conjunctivae inflammation, No Eyelid inflammation, No Other, No Redness ENT: No Ear pain, No Ear discharge, No Nose pain, No Nose discharge, No Nose congestion, No Mouth pain, No Mouth swelling, No Throat pain, No Throat swelling, No Other Cardiovascular: No Chest Pain, No Palpitations, No Orthopnea, No Paroxysmal Noc. Dyspnea, No Edema, No Lt Headedness, No Other Respiratory: No Cough, No Dry, No Shortness of breath, No SOB with excertion, No Wheezing, No Hemoptysis, No Pleuritic Pain, No Sputum, No Other Gastrointestinal: No Nausea, No Vomiting; Abdominal Pain, Diarrhea; No Constipation, No Melena, No Hematochezia, No Other Genitourinary: No Dysuria, No Frequency, No Incontinence, No Hematuria, No Retention, No Other Musculoskeletal: No other, No neck pain, No shoulder pain, No arm pain, No back pain, No hand pain, No leg pain, No foot pain Skin: No Rash, No Lesions, No Jaundice, No Bruising, No Other Objective Vitals Vital Signs Date Time Temp Pulse Resp B/P (MAP) Pulse Ox O2 Delivery O2 Flow Rate FiO2 05/28/24 05:00 98.5 58 20 102/53 (69) 97 98.5 05/27/24 20:00 Room Air* 0 21 Intake/Output Intake and Output 05/28/24 07:00 Intake Total 3300 ml Balance 3300 ml Intake Oral 1600 ml IV Total 1700 ml # Voids 6 Medications Current Medications Medications Dose Ordered Sig/Pancho Route Start Time Stop Time Status Last Admin Dose Admin Dextrose 50 ml UD PRN IV 05/25/24 23:30 Cancel Sodium Chloride 1,000 ml @ 100 mls/hr Q10H IV 05/25/24 23:30 05/28/24 01:31 100 MLS/HR Lorazepam 0.5 mg Q6HP PRN PO 05/25/24 23:30 05/27/24 16:57 0.5 MG Al Hydrox/Mg Hydrox/Simethicone 30 ml Q6HP PRN PO 05/25/24 23:30 Docusate Sodium 100 mg BIDPRN PRN PO 05/25/24 23:30 05/27/24 09:03 100 MG Acetaminophen 650 mg Q6HP PRN PO 05/25/24 23:30 05/27/24 04:14 650 MG Temazepam 15 mg QHSP PRN PO 05/25/24 23:30 Acetaminophen/ Hydrocodone Bitart 1 tab Q4HP PRN PO 05/25/24 23:30 05/27/24 21:11 1 TAB Ondansetron HCl 4 mg Q4HP PRN IV 05/25/24 23:30 05/26/24 00:13 4 MG Morphine Sulfate 2 mg Q4HPRN PRN IV 05/25/24 23:30 05/26/24 00:14 2 MG Patient Own Medication 600 mg HS PO 05/26/24 22:00 UNV Patient Own Medication 20 mg HS PO 05/26/24 22:00 Famotidine 40 mg/ Sodium Chloride 104 ml @ 416 mls/hr DAILY IV 05/26/24 10:00 05/27/24 09:04 416 MLS/HR [place] Carbonate 600 mg HS PO 05/26/24 22:00 05/27/24 21:11 600 MG Loratadine 10 mg DAILY PO 05/26/24 10:30 05/27/24 09:03 10 MG Ceftriaxone Sodium 50 ml @ 100 mls/hr DAILY@09 IV 05/27/24 09:00 05/27/24 10:48 100 MLS/HR Metronidazole 100 ml @ 100 mls/hr Q8HR IV 05/26/24 22:00 05/28/24 05:52 100 MLS/HR Dimethicone 40 mg QIDP PRN PO 05/27/24 17:30 05/27/24 17:45 40 MG Laboratory Results Laboratory Tests 05/26/24 06:07 Urinalysis Test 05/25/24 17:45 Urine Color Yellow (Yellow) Urine Clarity Clear (Clear) Urine pH 7.0 (5.0-9.0) Urine Specific [place] 1.023 (1.001-1.035) Urine Protein 1+ (Negative) H Urine Ketones 2+ (Negative) H Urine Blood Negative /uL (Negative) Urine Nitrite Negative (Negative) Urine Bilirubin Negative (Negative) Urine Urobilinogen Normal mg/dL (Negative) Urine Leukocyte Esterase Negative /uL (Negative) Urine RBC 6 /hpf (0 - 4) Urine WBC 6 /hpf (0 - 5) Urine Squamous Epithelial Cells Few /hpf (<5) Urine Bacteria None seen /hpf (None Seen) Urine Hyaline Casts Few /lpf (0 - 2) Urine Mucus Few (None Seen) Urine Glucose Normal mg/dL (Normal) Labs and/or images reviewed: Labs reviewed by me, Image(s) reviewed by me Assessment/Plan Assessment/Plan [place] [address] secondary to acute colitis now resolved Acute gastroenteritis: Rocephin Flagyl Bipolar : Librium Irritable bowel syndrome Acute dehydration: IV fluids Feels better and wants to go home Discharged on 05-27-24 Awaiting for ride home Plan discussed with: Patient My Orders Orders - ISIDRO HUTCHISON MD Procedure Category Date Status Time Discharge DISCHARGE 05/27/24 Transmitted 10:41 Date of Service: May 28, 2024 Billing Provider: ISIDRO HUTCHISON MD Common Visit Codes: [id number] INP/OBS CARE(HIGH) ISIDRO HUTCHISON MD May 28, 2024 09:30
== END 2024-05-28 10:30 | disposition home or self-care (01) | DRG 871 ==
LOC: ER 17:31 → OVERFLOW 23:24 → EAST 05-26 02:50
PROVIDERS: ADMIT Hospitalist; ATTEND Family Medicine
DX: A41.9 Sepsis, unspecified organism (principal); N17.0 Acute kidney failure with tubular necrosis; A04.9 Bacterial intestinal infection, unspecified; E86.0 Dehydration; F31.9 Bipolar disorder, unspecified; K57.30 Diverticulosis of large intestine without perforation or abscess without bleeding; K76.89 Other specified diseases of liver; Z79.899 Other long term (current) drug therapy; Z88.2 Allergy status to sulfonamides; Z98.891 History of uterine scar from previous surgery
CPT/HCPCS: 36415; 74176; 80048; 80053; 81001; 82962; 83605; 83690; 84702; 85025; 93005; 96361; 96374; 96375; 96376; G0378; J2405; J3490